=== PATIENT | female | born 1990 | race African-American/Black ===

== ENCOUNTER 2017-07-01 17:30 | Emergency (ER) | payer MEDICAID ==
[~2017-07-01] VITALS: Ht 154.9 cm; Wt 74.8 kg
[2017-07-01 17:58] VITALS: BP 135/66
--- NOTE | 2017-07-01 18:24 | Emergency Room Report ---
History of Present Illness General Chief Complaint: Abdominal Pain Source: EMS Present Illness HPI Pt. presents to the ED c/o 01/28 in severity localized abdominal pain with increase in protrusion from her umbilical hernia with moderate amount of pain. Patient denies fevers, chills, nausea, vomiting, erythema. She reports that she has never been able to food reduce her hernia however it is usually softer to palpation and at times will slightly reduced in size however with reappear once straining or coughing. Since last night she she has not been able to reduce her hernia and she is having increasing pain. Allergies: Coded Allergies: PENICILLINS (Verified Allergy, Unknown, 07/01/17) Patient History Past Medical History: see triage record Past Surgical History: none Pertinent Family History: none Immunizations: UTD Reviewed Nursing Documentation: PMH: Agreed, PSxH: Agreed Nursing Documentation-PMH Hx Hypertension: No - HERNIA Review of Systems All Other Systems: negative except mentioned in HPI Physical Exam Vital Signs Date Time Temp Pulse Resp B/P (MAP) Pulse Ox O2 Delivery O2 Flow Rate FiO2 07/01/17 17:48 98.8 78 20 135/66 99 Room Air Sp02 EP Interpretation: reviewed, normal General Appearance: no apparent distress, alert, GCS 15, non-toxic Head: normocephalic, atraumatic ENT: hearing grossly normal, normal voice Neck: full range of motion Respiratory: chest non-tender, lungs clear, normal breath sounds, speaking full sentences Cardiovascular #1: regular rate, rhythm, no edema Gastrointestinal: normal bowel sounds, non tender, soft, hernia - umbillical hernia- almost entirely reducible (85%), not strangulated however easily returns , no erythema, no severe tenderness or increased Rectal: deferred Genitourinary: normal inspection Musculoskeletal: back normal, gait/station normal, normal range of motion, non- tender Neurologic: alert, oriented x3, responsive, motor strength/tone normal, sensory intact, speech normal, grossly normal Psychiatric: judgement/insight normal Skin: normal color, no rash, warm/dry, well hydrated Lymphatic: no adenopathy Medical Decision Making PA Attestation Dr. correa is my supervising Physician whom patient management has been discussed with. Diagnostic Impression: Primary Impression: Umbilical hernia, incarcerated Additional Impressions: Hernia, umbilical Qualified Codes: K42.9 - Umbilical hernia without obstruction or gangrene UTI (urinary tract infection) Qualified Codes: N30.01 - Acute cystitis with hematuria ER Course Pt. presents to the ED c/o 01/28 in severity localized abdominal pain with increase in protrusion from her umbilical hernia with moderate amount of pain. Patient denies fevers, chills, nausea, vomiting, erythema. She reports that she has never been able to food reduce her hernia however it is usually softer to palpation and at times will slightly reduced in size however with reappear once straining or coughing. Since last night she she has not been able to reduce her hernia to usual size. and she is having increasing pain. Ddx considered but are not limited to Diverticulitis, acute appy, diarrhea,UC, PUD, GE, pancreatitis, gallstone Vital signs: are WNL, pt. is afebrile H&PE are most consistent with umbillical hernia- almost entirely reducible (85%) , not strangulated however easily returns, no erythema, no severe tenderness or increased temperature to palpation. ORDERS: -UA: indicative of UTI - Urine Hcg: negative -Given the patient's physical exam, in no acute distress and no evidence of straight urination or gangrene I do not feel that CT imaging would change my management of this patient. Discussed this with the patient and we made a collaborative decision to treat conservatively and followup with GI specialist. ED INTERVENTIONS: I discussed with this patient that she is stable for close outpatient follow up with GI specialist whom can evaluate and possibly fully reduce the hernia. I gave this patient strict emergency Department return precautions and went over symptoms that would indicate strangulation or surgical emergency. She verbally agrees and is understanding of this proposed treatment plan. DISCHARGE: At this time pt. is stable for d/c to home. Will provide printed patient care instructions, and any necessary prescriptions. Care plan and follow up instructions have been discussed with the patient prior to discharge. Call back follow up with pt. on 07/03/17- Pt. reports she continues to be asymptomatic and no worsening or new symptoms. Labs Test 07/01/17 18:00 Urine Color Yellow Urine Appearance Clear Urine pH 5 (4.5-8.0) Urine Specific Brogan 1.025 (1.005-1.035) Urine Protein Negative (NEGATIVE) Urine Glucose (UA) Negative (NEGATIVE) Urine Ketones Negative (NEGATIVE) Urine Occult Blood Negative (NEGATIVE) Urine Nitrite Negative (NEGATIVE) Urine Bilirubin Negative (NEGATIVE) Urine Urobilinogen 4 MG/DL (0.0-1.0) Urine Leukocyte Esterase 1+ (NEGATIVE) Urine RBC 2-4 /HPF (0 - 2) Urine WBC 5-10 /HPF (0 - 2) Urine Squamous Epithelial Cells Moderate /LPF (NONE/OCC) Urine Bacteria Moderate /HPF (NONE) Urine HCG, Qualitative Negative Last Vital Signs Date Time Temp Pulse Resp B/P (MAP) Pulse Ox O2 Delivery O2 Flow Rate FiO2 07/01/17 17:48 98.8 78 20 135/66 99 Room Air Disposition: HOME, SELF-CARE Condition: Stable Scripts Nitrofurantoin Monohyd/M-Cryst* (MACROBID 100 MG*) 100 Mg Capsule 100 MG ORAL EVERY 12 HOURS for 5 Days, #10 CAP Prov: Aura Fletcher 07/03/17 Docusate Sodium* (COLACE*) 100 Mg Capsule 100 MG ORAL THREE TIMES A DAY, #30 CAP Prov: Aura Fletcher 07/01/17 Ibuprofen* (MOTRIN*) 600 Mg Tablet 600 MG ORAL THREE TIMES A DAY, #30 TAB 0 Refills Prov: Aura Fletcher 07/01/17 Referrals: [facility],REFERR[facility] (PCP) Departure Forms: Return to Work Return to Work Date: Jul 05, 2017 Work Restrictions: No Heavy Lifting, No Prolonged Standing Return to Full Activity: Jul 12, 2017 Patient Instructions: Hernia, Adult Additional Instructions: Take medications as directed. Follow up with a Primary Care Provider for GI Specialist evaluation in 3-5 days, even if your symptoms have resolved. --Please review list of primary care clinics, if you do not already have a primary care provider !!!! If any change in symptoms, worsening of condition return immediately to the closest emergency department. Return sooner to ED if new symptoms occur, or current symptoms become worse. - Please note that this Emergency Department Report was dictated using [employer] technology software, occasionally this can lead to erroneous entry secondary to interpretation by the dictation equipment. Aura Fletcher Jul 01, 2017 18:24
[2017-07-01] MEDS ORDERED: COLACE100 MG ORAL (18:25)
[2017-07-01] MEDS ORDERED: IBUPROFEN600 MG ORAL (18:25)
[2017-07-01 18:26] VITALS: BP 135/66
[2017-07-01 18:27] LABS: APPEARANCE,URINE CLEAR; BILIRUBIN, URINE NEGATIVE (NEGATIVE); GLUCOSE, URINE (UA) NEGATIVE (NEGATIVE); KETONES,URINE NEGATIVE (NEGATIVE); LEUKOCYTE ESTERASE ,URINE 1+ (NEGATIVE); NITRITE,URINE NEGATIVE (NEGATIVE); PH,URINE 5 (4.5-8.0); PROTEIN,URINE NEGATIVE (NEGATIVE); UROBILINOGEN,URINE 4 MG/DL (0.0-1.0)
[2017-07-01 18:30] LABS: COLOR,URINE YELLOW
[2017-07-01] MEDS ORDERED: NITROFURANTOIN100 M2 ORAL (22:53)
[2017-07-03] MEDS ORDERED: NITROFURANTOIN100 M2 ORAL (14:07)
== END 2017-07-01 18:34 | disposition home or self-care (01) ==
LOC: EMR 18:00
DX: K42.0 Umbilical hernia with obstruction, without gangrene (principal); N39.0 Urinary tract infection, site not specified; Z88.0 Allergy status to penicillin
CPT/HCPCS: 81003; 81025; 87086; 99284

== ENCOUNTER 2018-12-14 15:44 | Emergency (ER) | payer SELFPAY ==
[~2018-12-14] VITALS: Ht 154.9 cm; Wt 72.6 kg
[~2018-12-14 15:44] MED LIST: COLACE100 MG ORAL; IBUPROFEN600 MG ORAL; NITROFURANTOIN100 M2 ORAL
--- NOTE | 2018-12-14 15:55 | NUR ---
ED Nurse Note: PT WALKED IN TO ER TODAY FROM HOME. AOX4. PT C/O PAINFUL BOIL TO SUPERIOR MEDIAL RIGHT BUTTOCK X 2 DAYS AGO, PAIN 10/10. ON ASSESSMENT, PT PRESENTS WITH ABSCESS WITHOUT ACTIVE DRAINAGE OR BLEEDING.
[2018-12-14 15:57] VITALS: BP 116/74
[2018-12-14] MEDS ORDERED: Lidocaine 1% 10mg/ml/EPI 0.01mg/ml 20ml INJ ONE (16:00)
[2018-12-14] MEDS ORDERED: Tetanus/Diptheria/Pertussis IM ONE (16:00)
--- NOTE | 2018-12-14 16:34 | Emergency Room Report ---
History of Present Illness General Chief Complaint: Skin Rash/Abscess Source: Patient Present Illness HPI 28-year-old female with no significant past medical history here complaining of 1 day of painful mass in buttocks area. Patient reports that she shaves the buttocks area few days ago and has been feeling a mass perianal region starting today and is making it difficult for her to sit. Patient is getting a pain 10 out of 10 without radiation. Denies pus drainage, tingling and numbness. Denies diarrhea constipation, nausea vomiting, abdominal pain. Patient has not taken any medication for symptoms. Denies fever and chills, shortness of breath , palpitation, chest pain, and all other associated symptoms. Allergies: Coded Allergies: PENICILLINS (Verified Allergy, Unknown, 07/01/17) Patient History Past Medical History: see triage record Past Surgical History: unable to obtain Pertinent Family History: none Last Menstrual Period: 12/02/18 Now: No Immunizations: other - tdap given today Reviewed Nursing Documentation: PMH: Agreed; PSxH: Agreed Nursing Documentation-PMH Past Medical History: No Stated History Hx Hypertension: No - HERNIA Review of Systems All Other Systems: negative except mentioned in HPI Physical Exam Vital Signs Date Time Temp Pulse Resp B/P (MAP) Pulse Ox O2 Delivery O2 Flow Rate FiO2 12/14/18 15:51 98.2 103 18 112/72 (85) 96 Room Air Sp02 EP Interpretation: reviewed, normal General Appearance: normal inspection, well appearing, no apparent distress Head: normocephalic, atraumatic Eyes: bilateral eye normal inspection, bilateral eye PERRL ENT: normal ENT inspection, normal pharynx Neck: normal inspection, full range of motion, supple, thyroid normal Respiratory: normal inspection, chest non-tender, lungs clear, no rhonchi, no wheezing Cardiovascular #1: normal inspection, regular rate, rhythm, no gallop, no murmur Gastrointestinal: normal inspection, non tender, soft Rectal: other - Abscess perianal Genitourinary: no CVA tenderness Musculoskeletal: normal inspection, back normal, digits/nails normal Neurologic: normal inspection, alert, oriented x3, responsive Psychiatric: normal inspection, judgement/insight normal Skin: warm/dry, other - Abscess perianal Lymphatic: normal inspection, no adenopathy Procedures Incision and Drainage Incision and Drainage : Consent: Verbal Blade Size: 11 I & D Procedure: betadine prep Wound Location: pelvis Wound's Depth, Shape: superficial Wound Length (cm): 1 Wound Explored: clean Anesthesia: Lidocaine w/ Epi Volume Anesthetic (ccs): 5 Splint Applied?: No Sling Applied?: No Patient Tolerated: Well Complications: None Medical Decision Making PA Attestation All diagnoses and treatment plans were reviewed and discussed with my supervising physician Dr. Guerrero Diagnostic Impression: Primary Impression: Perianal abscess ER Course 28-year-old female with no significant past medical history here complaining of 1 day of painful mass in buttocks area. Patient reports that she shaves the buttocks area few days ago and has been feeling a mass perianal region starting today and is making it difficult for her to sit. Patient is getting a pain 10 out of 10 without radiation. Denies pus drainage, tingling and numbness. Denies diarrhea constipation, nausea vomiting, abdominal pain. Patient has not taken any medication for symptoms. Denies fever and chills, shortness of breath , palpitation, chest pain, and all other associated symptoms. Ddx considered but are not limited to : Cellulitis, Pylo cysts, perianal cyst, perirectal cyst complicated Vital signs: are WNL, pt. is afebrile H&PE are most consistent with: Uncomplicated perianal cyst ORDERS: Lidocaine with epi, Bactrim DS, naproxen ED INTERVENTIONS: Tdap, incision and drainage DISCHARGE: At this time pt. is stable for d/c to home. Will provide printed patient care instructions, and any necessary prescriptions. Care plan and follow up instructions have been discussed with the patient prior to discharge. Follow-up with a primary care provider in 2 to 3 days for wound check if fever and chills return to the emergency room avoid shaving the area Last Vital Signs Date Time Temp Pulse Resp B/P (MAP) Pulse Ox O2 Delivery O2 Flow Rate FiO2 12/14/18 15:57 98.4 96 17 116/74 99 Room Air Disposition: HOME, SELF-CARE Condition: Stable Patient Instructions: Perianal Abscess Additional Instructions: Follow-up with your primary care provider for wound check if fever and chills return to the emergency room avoid shaving the area keep area dry Arnoldo Berman Dec 14, 2018 16:34
[2018-12-14] MEDS ORDERED: BACTRIM DS TAB1 EAC1 ORAL (16:35)
[2018-12-14] MEDS ORDERED: NAPROXEN500 M2 ORAL (16:35)
[2018-12-14 16:52] VITALS: BP 112/72
--- NOTE | 2018-12-14 16:53 | NUR ---
ED Nurse Note: PT LAYING PEACEFULLY IN BED IN NAD. AOX4. PRESCRIPTIONS AND DISCHARGE PAPERWORK EXPLAINED TO PT. PT VERBALIZES UNDERSTANDING AND ALL QUESTIONS ANSWERED. PRESCRIPTIONS AND DISCHARGE PAPERWORK GIVEN TO PT AND ID WRISTBAND REMOVED. PT WALKED OUT OF ER WITH STEADY GAIT AND ALL BELONGINGS.
== END 2018-12-14 16:53 | disposition home or self-care (01) ==
LOC: EMR 16:19
DX: K61.0 Anal abscess (principal); Z88.0 Allergy status to penicillin; Z23 Encounter for immunization
CPT/HCPCS: 90471; 90715; 99283

== ENCOUNTER → 2019-07-09 | Emergency (ER) | payer MEDICAID ==
[~2019-07-09] VITALS: Ht 154.9 cm; Wt 72.6 kg
[~2019-07-09] MED LIST changes: +BACTRIM DS TAB1 EAC1 ORAL; +NAPROXEN500 M2 ORAL
[2019-07-09 22:35] VITALS: BP 132/82
--- NOTE | 2019-07-09 22:37 | NUR ---
ED Nurse Note: Pt unable to locate. Pt was triaged but left without being seen. Charge nurse and ERMD notied and acknowledged.
--- NOTE | 2019-07-09 23:31 | Emergency Room Report ---
History of Present Illness General Chief Complaint: Abdominal Pain Source: Patient Present Illness HPI Patient checked in with abdominal pain and no menstruation. She was called several times but no response. She left after triage. I did not see this patient. Allergies: Coded Allergies: PENICILLINS (Verified Allergy, Unknown, 07/01/17) Patient History Last Menstrual Period: 04/14/19 Nursing Documentation-[facility] Past Medical History: No Stated History Hx Hypertension: No - HERNIA Physical Exam Vital Signs Date Time Temp Pulse Resp B/P (MAP) Pulse Ox O2 Delivery O2 Flow Rate FiO2 07/09/19 22:35 98.4 70 20 132/82 (99) 97 Room Air Medical Decision Making Diagnostic Impression: Primary Impression: Patient left without being seen ER Course This patient left without being seen. I did not see this patient. Last Vital Signs Date Time Temp Pulse Resp B/P (MAP) Pulse Ox O2 Delivery O2 Flow Rate FiO2 07/09/19 22:35 98.4 70 20 132/82 (99) 97 Room Air Status: unchanged Disposition: LEFT W/OUT BEING SEEN Condition: Stable Siddhartha Cai MD Jul 09, 2019 23:30
== END | disposition left against medical advice (07) ==
LOC: EMR 23:57
DX: R10.9 Unspecified abdominal pain (principal); Z53.21 Procedure and treatment not carried out due to patient leaving prior to being seen by health care provider; Z88.0 Allergy status to penicillin